=== PATIENT | female | born 1975 | race African-American/Black ===

== ENCOUNTER 2024-12-01 06:58 | Emergency (ER) | payer OTHER, SELFPAY ==
[2024-12-01] VITALS (10 sets, daily range): BP systolic 157–188; BP diastolic 83–103; PULSE 66–91; RESP 14–20; TEMP 36.6; O2SAT 90–100
--- NOTE | ~2024-12-01 | XR_ITS ---
Portable chest x-ray Comparison: None Clinical History: Cough Findings: Lungs are clear, without focal consolidation or pleural effusion. Cardiomediastinal silho uette is unremarkable. Bones and soft tissues are unremarkable. Impression: Normal chest. Reviewed, dictated and finalized at location . Impression: Normal chest.
--- NOTE | 2024-12-01 07:32 | ECG_ITS ---
Test Date: 2024-12-01 07:37:37 Measurements Intervals [place] Rate: 62 P: 42 [place]: 186 QRS: 43 QRSD: 82 T: 6 QT: 410 QTc: 418 Interpretive Statements SINUS RHYTHM BORDERLINE R WAVE PROGRESSION, ANTERIOR LEADS BORDERLINE ST-T WAVE ABNORMALITY- INFERIOR LEADS BASELINE ARTIFACT- I, II, III, AVR, AVL, AVF, V4-V5 BORDERLINE ECG No previous ECG available for comparison Electronically Signed On 12-01-2024 08:29:10 CDT by Adin Hightower D.O.
[2024-12-01] MEDS: hydrALAZINE HCL 20 MG/ML VIAL 10 MG IV PUSH (07:56)
[2024-12-01 08:05] LABS: Basophils Percent Auto 0.3 % (0.2-1.2); Eosinophils Absolute Auto 0.1 K/mm3 (0-0.3); Eosinophils Percent Auto 1.5 % (0-4.4); Hematocrit 37.1 % (37.0-47.0); Hemoglobin 11.6 g/dL (12.0-15.0); Immature Granulocyte Absolute 0.01 K/mm3 (0.00-0.031); Immature Granulocyte Percent A 0.3 % (0-0.5); Lymphocytes Absolute Auto 1.22 K/mm3 (0.9-3.2); Lymphocytes Percent Auto 35.5 % (18.3-44.2); Mean Corpuscular HGB Conc 31.3 g/dl (32-36); Mean Corpuscular Hemoglobin 26.7 pg (26-34); Mean Corpuscular Volume 85.3 fl (80-100); Mean Platelet Volume 12.8 fl (7.4-10.4); Monocytes Absolute Auto 0.3 K/mm3 (0.1-0.6); Monocytes Percent Auto 8.4 % (2.6-8.5); Neutrophils Absolute Auto 1.9 K/mm3 (1.3-6.7); Platelet Count Result 199 k/mm3 (150-375); Red Blood Count 4.35 M/mm3 (4.2-5.4); Red Cell Distribution Width 16.4 % (11.5-14.5); White Blood Count 3.4 K/mm3 (4.5-10.0)
[2024-12-01 08:07] LABS: Add Urine Microscopic? NO; Appearance Urine Clear (Clear); Bilirubin Urine Negative (Negative); Blood Urine Negative (Negative); Color Urine Yellow (Yellow); Glucose Urine UA Negative (Negative); Ketones Urine Negative (Negative); Leukocyte Esterase Ur Negative LEU/UL (Negative); Nitrate Urine Negative (Negative); Protein Urine Negative (Negative); Specific Grav Ur 1.005 (1.001-1.035); pH Urine 7.5 (5.0-9.0)
[2024-12-01 08:15] LABS: Alanine Aminotransferase 12 U/L (6-35); Albumin Level 4.2 g/dL (3.5-5.1); Alkaline Phosphatase 48 U/L (38-126); Anion Gap 7 mmol/L (4-12); Aspartate Amino Transferase 35 U/L (14-36); Bilirubin,Total 0.5 mg/dL (0.2-1.3); Blood Urea Nitrogen 6 mg/dL (7-17); Calcium 8.9 mg/dL (8.4-10.2); Carbon Dioxide 26 mmol/L (22-30); Chloride 106 mmol/L (98-107); Estimated CRCL calculation 67 ml/min; Estimated Glomerular Filt Rate > 60; Glucose 95 mg/dL (65-110); Potassium 3.6 mmol/L (3.4-5.0); Sodium 139 mmol/L (137-145); Total Protein 8.1 g/dL (6.3-8.2)
--- OUTSIDE RECORDS SUMMARY | 2024-12-01 08:36 | XMS_ITS | Data Portability ---
Author Organization [employer], Main Office Address [address] [place] [address] Assessment Encounter Date Assessment Date Assessment LastModified by Organization Details LastModified Time 11/28/2023 11/28/2023 This note is dictated and transcribed by [employer]. Environmental Permitting Specialist variances may occur. Despite proofreading, typographical errors may occur. Occasional wrong-word or 'dxvst-j-nxsh' substitutions may have occurred due to the inherent limitations of voice recording. Read the chart carefully and recognize, using context, where substitutions have occurred. Not available 11/28/2023 10:22:44 08/03/2024 08/03/2024 This note is dictated and transcribed by [employer]. Environmental Permitting Specialist variances may occur. Despite proofreading, typographical errors may occur. Occasional wrong-word or 'dissg-l-oije' substitutions may have occurred due to the inherent limitations of voice recording. Read the chart carefully and recognize, using context, where substitutions have occurred. Not available 08/03/2024 12:48:46 08/31/2024 08/31/2024 This note is dictated and transcribed by [employer]. Environmental Permitting Specialist variances may occur. Despite proofreading, typographical errors may occur. Occasional wrong-word or 'bvksl-n-eyzh' substitutions may have occurred due to the inherent limitations of voice recording. Read the chart carefully and recognize, using context, where substitutions have occurred. Not available 08/31/2024 14:57:13 Plan of Treatment Reminders Order Date Submit Date Provider Last Modified By Organization Details Last Modified Time Details Appointments None record ed. Lab None record ed. Referral None record ed. Procedures None record ed. Surgeries None record ed. Imaging XR, foot, 3 or more view 025 08/03/19 25 [email or web address] [facility] [place], [address], [place], [address], 5 12:51:34 Medication Orders None record ed. Patient TargetsNo targets recorded. Patient InstructionsNo instructions recorded. Reason for Referral None Reported. Results Created Date Observation Date Name Description Value Unit Range Abnormal Flag Note LastModifiedBy Organization Detail LastModifiedTime 08/03/19 25 XR, foot, 3 or more view No observ ation record ed. [email or web address] [facility] [place] [address], [place], [address], 08/03/2024 12:51:34 Result Notes None recorded. Problems Name Problem SNOMED Code Status Onset Date Resolution Date Notes Provider Name and Address Organization Details Recorded Time Pain of toe of left foot 920691019477413 Active 2023 Kenny Brar DPM [address], [address], [place], [address], [employer] 4 10:23:01 Curly toe 460067876 Active 2023 Kenny Brar DPM [address], [address], [place], [address], [employer] 4 10:23:06 [place] of toe 35885295 Active 2023 Kenny Brar DPM [address], [address], [place], [address], [employer] 4 10:23:13 Hammer toe 857481143 Active 2024 Kenny Brar DPM [address], [address], [place], [address], [employer] 5 12:48:55 Hammer toe 491965454 Active 2024 Kenny Brar DPM [address], [address], [place], [address], [employer] 12:48:59 Problem Notes None recorded. Procedures Surgical History Date Name Laterality Status Provider Name and Address Organization Details Recorded Time 08/31/2024 Callus Debridement , One completed Kenny Brar DPM [address], [address], [place], [address], [employer] 08/31/2024 11:47:22 08/03/2024 Callus Debridement , One completed Kenny Brar DPM [address], [address], [place], [address], [employer] 08/03/2024 12:53:13 11/28/2023 Callus Debridement , One completed Kenny Brar DPM [address], [address], [place], [address], [employer] 11/28/2023 10:21:29 Imaging Results None recorded. Procedure Notes None recorded. Medical Equipment None Reported. Allergies No known drug allergies Vitals Date Recorded Body height Body mass index (BMI) Body weight Heart rate Respiratory rate Oxygen saturation Oxygen saturation in Arterial blood by Pulse oximetry Systolic blood pressure Diastolic blood pressure Provider Name and Address Organization Details Last Updated DateTime 157.48 cm 20.1 kg/m2 13436.1 6 g 56 /min 14 /min 99 % 99 % 146 mm[Hg] 83 mm[Hg] Yina Springer [employer] 12:25:37 Date Recorded Body height Body mass index (BMI) Body weight Heart rate Respiratory rate Oxygen saturation Oxygen saturation in Arterial blood by Pulse oximetry Systolic blood pressure Diastolic blood pressure Provider Name and Address Organization Details Last Updated DateTime 157.48 cm 20.1 kg/m2 11085.1 6 g 101 /min 14 /min 99 % 99 % 163 mm[Hg] 115 mm[Hg] Yina Springer [employer] 11:21:58 Date Recorded Body height Body mass index (BMI) Body weight Provider Name and Address Organization Details Last Updated DateTime 11/28/2023 157.48 cm 20.1 kg/m2 16551.16 g Naty Riley [facility] [employer] 11/28/2023 10:35:17 Date Recorded Heart rate Respiratory rate Oxygen saturation Oxygen saturation in Arterial blood by Pulse oximetry Systolic blood pressure Diastolic blood pressure Provider Name and Address Organization Details Last Updated DateTime 4 88 /min 14 /min 98 % 98 % 168 mm[Hg] 111 mm[Hg] Yina Springer MD [employer] 4 10:10:01 Social History None recorded. Functional Status Question Answer Note LastModified by Organizat ion Details LastModified Time What is your level of alcohol consumption? Occasional [email or web address] Information not available 11/28/2023 Mental Status None recorded. Family History Relationship Description Onset Age of this Age Resolved Age Notes LastModified by Organization Details LastModified Time Father Diabetes mellitus [email or web address] Not available 2023 10:35:47 Father Hypertensive disorder [email or web address] Not available 2023 10:36:07 Mother Family history of malignant neoplasm [email or web address] Not available 2023 10:35:56 Mother Hypertensive disorder [email or web address] Not available 2023 10:36:07 Medical History No medical history recorded. Gynecological HistoryNo gynecological history recorded. Obstetrics History GPAL:G 0 P 0 0 0 0 Past Encounters Encounter ID Performer Location Encounter Start Date Encounter Closed Date Diagnosis/Indication Diagnosis SNOMED-CT Code Diagnosis ICD10 Code Diagnosis Note [id number] Kenny Brar DPM [facility] [place] [address] [place] [address] 11/28/2023 09:58:41 11/28/2023 11:34:33 Pain of toe of left foot 5074778327 36592 M79.675 5th -curly toe Curly toe 747622410 M20. 5X9 educated on treatment options both conservati ve and surgical [place] of toe 95024038 L84 debrided without incidentof floading options reviewedre commend wide shoe gear and silicone toe sleevefoll ow-up as needed [id number] Kenny Brar DPM [facility] [place] [address] [place] [address] 08/03/2024 12:13:43 08/04/2024 12:53:39 Pain of toe of left foot 1267026539 94788 M79.675 5th -curly toeoffload ing options reviewedre commend silicone toe sleevereco mmend wide shoe gearrecomm end square or rounded toe box shoes [place] of toe 12207429 L84 debrided without incidentof floading options reviewedre commend wide shoe gear and silicone toe sleevefoll ow-up as needed Hammer toe 337149975 M20 .42 left 5th toeadducto varus 5th toeas above conservati ve options [id number] Kenny Brar DPM [facility] [place] [address] [facility] [address] [place] [address] 08/31/2024 11:07:33 09/01/2024 09:33:31 Curly toe 280832517 M20.5X9 educated on treatment options both conservati ve and surgical Pain of to e of left foot 1491586635 64744 M79.675 5th -curly toeoffload ing options reviewedre commend silicone toe sleevereco mmend wide shoe gearrecomm end square or rounded toe box shoes [place] of toe 80261435 L84 debrided without incidentof floading options reviewedre commend wide shoe gear and silicone toe sleevefoll ow-up 2 months possible surgery if continues to fail conservati ve offloading Health Concerns Section Related Observation LastModified by Organization Detai ls LastModified Time None Recorded Concern Status LastModified by Organization Details LastModified Time None Recorded Advance Directives Directive None Recorded Payers Insurance Date Sequence Insurance Name Policy Number Policy [place] Covered Member ID [place] Member ID Guarantor Name 07/02/2024 1 [place] [id number] Maria T Lozano [id number] Maria T Lozano 10/23/2024 1 [facility] - DOS ON OR AFTER 2020 - DUAL ELIGIBLE (MEDICARE REPLACEMENT/ ADVANTAGE - HMO) Maribel Lozano [id number] Maira T Lozano Notes Date Note Type Note Provider Name and Address Organization Details Recorded Time 11/28/2023 text/html . Patient is a 48-year-old female who presents the office with complaints of pain to her left 5th toe. Patient states she produces a callus to the area. Patient states she likes narrow toe shoe gear. Patient states this has been ongoing. Patient states she develops a callus but denies any wounds or signs of infection. Patient states the pain is sharp in nature. Patient states if she is not wearing tight shoe gear the toe does not significantly hurt. 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 Patient denies any other complaints. Kenny Brar DPM [address], [address], [place], [address], [employer] 11/28/2023 11:11:23 08/03/2024 text/html . Patient is a 49-year-old female she presents the office with complaints of pain to her left 5th toe she states that she has developed a painful corn to the distal lateral toe area at the nail. 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 Patient states when she is walking she has pain to the area of the corn she denies any open wounds. Patient states she has tried some conservative offloading with silicone pads and wider shoe gear which has not significantly helped. Patient denies any other complaints. Kenny Brar DPM [address], [address], [place], [address], [employer] 08/03/2024 17:49:27 08/31/2024 text/html . Patient is a 49-year-old female who returns the office for follow-up on curly toe and corn to the lateral 5th toe she states that the offloading is helping but she continues have recurrence of the callus formation she states that the toe is significantly painful when the corn becomes prominent. Patient denies any open wounds or infection. Patient states when she is not walking the toe does not hurt. Patient denies any other complaints. Kenny Brar DPM [address], [place], [address], [employer] 08/31/2024 14:57:48 OBGyn Episode No OBEpisode recorded.
--- OUTSIDE RECORDS SUMMARY | 2024-12-01 08:36 | XMS_ITS | Data Portability ---
Author Organization [facility] Address [address] [place] [address] Care Team Providers Care Cash Surrender Calculator Name Role Phone LUDWIN JOVEL Cushion Maker Unavailable Assessment Encounter Date Assessment Date Assessment LastModified by Organization Details LastModified Time 03/02/2016 03/02/2016 40yo : 1. Health maintenance: - pap collected today - clinical breast exam wnl; encouraged breast self awareness; discussed recs for screening mammography starting at 40 - STD testing ordered 2. Contraception: - s/p BTL 3. RTC 1 year or sooner prn suman Not available 03/02/2016 11:15:44 03/03/2021 03/03/2021 Maria T is a 45 y.o. thin female who has exp. a few family deaths close together. Does feel as though life is stressful. Exp. a cycle at the end of Jan. and again the beginning of Feb. Discussed life stresses and early onset of menopause as possible reasons for change in cycles. No hx. of fibroid uterus, Has never had cycle changes like this before. Pt. to have annual exam and possible labs. No lab person today. Pt. to RTC in Mar. for assessment of cycle and annual visit. Not available 03/03/2021 10:51:22 Plan of Treatment Reminders Order Date Submit Date Provider Last Modified By Organization Details Last Modified Time Details Appointments None recorded. Lab vaginal pathogens panel, JULIEN+probe, vaginal fluid 2023 024 [facility], [address] [place] [address], [address], [place], [address], 4 06:15:26 HIV 1 + 2, meaningful use set 2023 024 [facility], [address] [place] [address], [address], [place], [address], 4 08:23:27 RPR (rapid plasma reagin), serum 2023 024 [facility], [address] [place] [address], [address], [place], [address], 4 08:23:26 HBsAg (hepatitis B surface Ag), EIA, serum 2023 024 [facility], [address] [place] [address], [address], [place], [address], 4 13:09:54 Hepatitis C IgG Ab, qual, serum 2023 024 [facility], [address] [place] [address], [address], [place], [address], 4 08:23:29 pap, IG + reflex HPV 2023 024 [facility], [address] [place] [address], [address], [place], [address], 4 06:20:53 unlisted lab - Pap Ig, CT-NG, TV, HPV 16/18 2015 016 [email or web address] 3 [facility] [address] [place], [address], 6 12:09:11 hepatitis panel (A+B+C), acute, serum 2015 016 [facility], [address] [place] [address], [address], [place], [address], 6 09:15:10 RPR (rapid plasma reagin), serum 2015 016 [facility], [address], [address], [place], [address], 6 09:15:12 HIV (1+2) Ab screen, serum 2015 016 [facility] (Lab), [address] [place], [address], 6 06:28:59 Referral genetic counselor referral - First degree relative with breast cancer. Wanting BRCA gene testing please. [address] Genetic Counselor, [address] [place] [address], [address], 4 09:45:12 Procedures None recorded. Surgeries None recorded. Imaging MAMMO, screening, digital, bilateral 2023 024 [facility], [address] [place], [address], 4 10:26:18 Medication Orders promethazin e 25 mg tablet 2015 016 [facility] #[id number], [address], [place], [place], [id number], 1 09:58:16 amoxicillin 875 mg tablet 2014 015 [id number], [address], [place], [place], [id number], 6 11:10:17 Flonase Allergy Relief 50 mcg/actuati on nasal spray,suspe nsion 2014 015 [id number], [address], [place], [place], [id number], 6 11:10:17 montelukast 10 mg tablet [address] [facility] #69848, [address] , [place], [place], [id number], 6 11:10:17 loratadine 10 mg tablet 2014 Pam [facility] #01548, [address] [facility], [place], [place], [id number], 6 11:10:17 Patient Targets Encounter Date Encounter Id Patient Goals Patient Target Last Modified By Organization Details Last Modified Time 03/03/2021 [id number] Up dated annual exam to include mammogram Not available 03/03/2021 10:51:55 Patient Instructions Encounter Date Encounter Id Patient Instructions Last Modified By Organization Details Last Modified Time 01/11/2015 [id number] lightheadedness or faintness: care instructions Not available 01/13/2015 17:41:11 note to return t o work/school Not available 01/13/2015 17:32:59 03/03/2021 [id number] Discussed stress and possible onset of menopause as reason for cycle changes Not available 03/03/2021 10:52:23 08/05/2023 [id number] Quitting Tobacco : Care Instructions eclardy Not available 08/05/2023 11:48:01 Reason for Referral Genetic Counselor Referral f or Family history of malignant neoplasm of breast in first degree relative First degree relative with breast cancer. Wanting BRCA gene testing please. Referring Physician: Deandra Garcia, Family Medicine, Encounter Date: 08/05/2023 Results Created Date Observation Date Name Description Value Unit Range Abnormal Flag Note LastModifiedBy Organization Detail LastModifiedTime 03/02/20 16 03/03/2016 HIV (1+2) Ab scree n, serum HIV 4TH generation Non Reacti ve non reacti ve Not Available [facility] (Lab) [address] [place], [address], 03/03/2016 06:28:59 03/02/20 16 03/03/2016 hepat itis panel (A+B+ C), acute , serum hep A Ab, IgM Negati ve negati ve Not Available [facility] (Lab) [address] [place], [address], 03/03/2016 09:15:10 03/02/20 16 03/03/2016 hepat itis panel (A+B+ C), acute , serum HBsAg screen Negati ve negati ve Not Available [facility] (Lab) [address] [place], [address], 03/03/2016 09:15:10 03/02/20 16 03/03/2016 hepat itis panel (A+B+ C), acute , serum hep B core Ab, IgM Negati ve negati ve Not Available [facility] (Lab) [address] [place], [address], 03/03/2016 09:15:10 03/02/20 16 03/03/2016 hepat itis panel (A+B+ C), acute , serum hep C virus Ab <0.1 s/co_ ratio 0.0-0. 9 Negat lewis: < 0.8 Indet ermin ate: 0.8 - 0.9 Posit lewis: > 0.9 . The CDC recom mends that a posit lewis HCV antib natividad resul t be follo wed up with a HCV Nucle ic Acid Ampli ficat ion test (5507 13). Not Available [facility] (Lab) [address] [facility], [place], [address], 03/03/2016 09:15:10 03/02/20 16 03/03/2016 RPR (rapi d plasm a reagi n), serum RPR Non Reacti ve non reacti ve Not Available [facility] (Lab) [address] [place], [address], 03/03/2016 09:15:12 03/02/20 16 03/06/2016 [facility] lab diagnosis: COMMEN T NEGAT LEWIS FOR INTRA EPITH ELIAL LESIO N AND MALIG BARNEY . Not Available [facility] ([facility] Lab) [address] [facility], [place], [address], 03/06/2016 17:10:43 03/02/20 16 03/06/2016 unlis geeta lab specimen adequacy: MIMI Obando SATIS FACTO RY FOR EVALU ATION . ENDOC ERVIC AL AND/O R SQUAM OUS METAP LASTI C CELLS (ENDO CERVI ALPHONSO COMPO NENT) ARE PRESE NT. Not Available [facility] ([facility]) [address] [facility], [place], [address], 03/06/2016 17:10:43 03/02/20 16 03/06/2016 unlis geeta lab clinician provided ICD10: MIMI Obando Z01.4 19 Not Available [facility] ([facility]) [address] [place], [address], 03/06/2016 17:10:43 03/02/20 16 03/06/2016 unlis geeta lab performed by: MARICRUZ HERMAN (ASCP ) Not Available [facility] ([facility]) [address] [place], [address], 03/06/2016 17:10:43 03/02/20 16 03/06/2016 un[facility] lab . . Not Available [facility] ([facility]) [address] [place], [address], 03/06/2016 17:10:43 03/02/20 16 03/06/2016 un[facility] lab note: MIMI Obando THE PAP SMEAR IS A SCREE VLADIMIR TEST DESIG HARVEY TO AID IN THE DETEC TION OF VIOLETTA LIGNA NT AND MALIG NANT CONDI TIONS OF THE UTERI NE CERVI X. IT IS NOT A DIAGN OSTIC PROCE DURE AND SHOUL D NOT BE USED THE SOLE MEANS OF DETEC TING CERVI ALPHONSO CANCE R. BOTH FALSE -POSI TIVE AND FALSE -NEGA TIVE REPOR TS DO OCCUR . Not Available [facility] ([facility]) [address] [place], [address], 03/06/2016 17:10:43 03/02/20 16 03/06/2016 unlis [facility]eta lab test methodology: COMMEN T THIS LIQUI D BASED THINP REP(R ) PAP TEST WAS ISREAL NAYAK WITH THE USE OF AN IMAGE GUIDE Radha Larson. Not Available [facility] ([facility]) [address] [place], [address], 03/06/2016 17:10:43 03/02/20 16 03/06/2016 [facility] lab HPV, high-risk NEGATI VE negati ve THIS HIGH- RISK HPV TEST DETEC TS THIRT EEN HIGH- RISK TYPES (16/1 8/31/ 33/35 /39/4 5/51/ 52/56 /58/5 ) WITHO UT DIFFE RENTI ATION . Not Available [facility] ([facility]) [address] [place], [address], 03/06/2016 17:10:43 03/02/20 16 03/06/2016 [facility] lab chlamydia, nuc. acid amp NEGATI VE negati ve Not Available [facility] ([facility]) [address] [place], [address], 03/06/2016 17:10:43 03/02/20 16 03/06/2016 [facility] lab gonococcus, nuc. acid amp NEGATI VE negati ve Not Available [facility] ([facility]) [address] [place], [address], 03/06/2016 17:10:43 03/02/20 16 03/06/2016 [facility] lab trich vag by JULIEN NEGATI VE negati ve Not Available [facility] ([facility]) [address] [place], [address], 03/06/2016 17:10:43 08/05/19 24 08/06/2023 RPR, RFX QN RPR/C ONFIR M TP RPR Non Reacti ve nonrea ctive Not Available [facility] ([facility]) [address] [facility], [place], [address], 08/06/2023 08:23:26 08/05/19 24 08/06/2023 HIV AB/P2 4 AG WITH REFLE X HIV Ab/P24 Ag screen Non Reacti ve nonrea ctive HIV Negat lewis HIV-1 /HIV- 2 antib odies and HIV-1 p24 antig en were NOT detec geeta. There is no labor atory evide nce of HIV infec tion. Not Available [facility] ([facility]) [address] [facility], [place], [address], 08/06/2023 08:23:27 08/05/19 24 08/06/2023 INTER PRETA TION: interpretati on: Commen t Not infec geeta with HCV unles s early or acute infec tion is suspe cted (whic h may be delay ed in an immun ocomp romis ed indiv idual ), or other evide nce exist s to indic ate HCV infec tion. Not Available [facility] ([facility]) [address] [facility], [place], [address], 08/06/2023 08:23:28 08/05/19 24 08/06/2023 HCV ANTIB NATIVIDAD RFX TO QUANT PCR HCV Ab Non Reacti ve nonrea ctive Not Available [facility] ([facility]) [address] [facility], [place], [address], 08/06/2023 08:23:29 08/05/19 24 08/06/2023 HBSAG SCREE N HBsAg screen Negati ve negati ve Not Available [facility] ([facility]) [address] [place], [address], 08/06/2023 13:09:54 08/05/19 24 08/06/2023 NUSWA B VAGIN ITIS PLUS (VG+) atopobium vaginae High - 2 score abnormal Not Available [facility] ([facility]) [address] [facility], [place], [address], 08/07/2023 06:15:26 08/05/19 24 08/06/2023 NUSWA B VAGIN ITIS PLUS (VG+) bvab 2 High - 2 score abnormal Not Available [facility] ([facility]) [address] [facility], [place], [address], 08/07/2023 06:15:26 08/05/19 24 08/06/2023 NUA B VAGIN ITIS PLUS (VG+) megasphaera 1 High - 2 score abnormal Calcu late total score by aric masters the 3 indiv idual bacte rial vagin osis (BV) marke r score s toget her. Total score is inter prete d as follo ws: Total score 0-1: Indic ates the absen ce of BV. Total score 2: Indet ermin ate for BV. Addit ional clini alphonso data shoul d be evalu ated to estab robert a diagn osis. Total score 3-6: Indic ates the prese nce of BV. This test was devel oped and its perfo rmanc e ama cteri stics deter mined by [facility]. It has not been clear ed or appro angel luis by the Food and Drug Admin istra tion. Not Available [facility] ([facility]) [address] [facility], [place], [address], 08/07/2023 06:15:26 08/05/19 24 08/06/2023 NUA B VAGIN ITIS PLUS (VG+) gerhard albicans, JULIEN Negati ve negati ve Not Available [facility] ([facility]) [address] [facility], [place], [address], 08/07/2023 06:15:26 08/05/19 24 08/06/2023 NUSWA B VAGIN ITIS PLUS (VG+) gerhard glabrata, JULIEN Negati ve negati ve Not Available [facility] ([facility]) [address] [facility], [place], [address], 08/07/2023 06:15:26 08/05/19 24 08/07/2023 NUSWA B VAGIN ITIS PLUS (VG+) trich vag by JULIEN Negati ve negati ve Not Available [facility] ([facility]) [address] [place], [address], 08/07/2023 06:15:26 08/05/19 24 08/07/2023 NUSWA B VAGIN ITIS PLUS (VG+) chlamydia trachomatis, JULIEN Negati ve negati ve Not Available [facility] ([facility]) [address] [facility], [place], [address], 08/07/2023 06:15:26 08/05/19 24 08/07/2023 NUA B VAGIN ITIS PLUS (VG+) neisseria gonorrhoeae, JULIEN Negati ve negati ve Not Available [facility] ([facility]) [address] [place], [address], 08/07/2023 06:15:26 08/05/19 24 08/05/2023 IGP,A PTIMA HPV,A GE GDLN age gdln acog testing 30-65 Not Available [facility] ([facility]) [address] [place], [address], 08/09/2023 06:20:53 08/05/19 24 08/06/2023 IGP, APTIM A HPV, RFX 16/18 ,45 HPV aptima Negati ve negati ve This nucle ic acid ampli ficat ion test detec ts fourt een high- risk HPV types (16,1 8,31, 33,35 ,39,4 5,51, 52,56 ,58,5 9,66, 68) witho ut diffe renti ation . Not Available [facility] ([facility]) [address] [place], [address], 08/09/2023 06:20:54 08/05/19 24 08/08/2023 IGP, APTIM A HPV, RFX 16/18 ,45 diagnosis: Mimi SAUCEDO FOR INTRA EPITH ELIAL LESIO N OR EMILIODENNY BARNEY . Not Available [facility] ([facility]) [address] [facility], [place], [address], 08/09/2023 06:20:54 08/05/19 24 08/08/2023 IGP, APTIM A HPV, RFX 16/18 ,45 specimen adequacy: Mimi obando Satis facto ry for evalu ation . No endoc ervic al compo nent is ident ified . Not Available [facility] ([facility]) [address] [place], [address], 08/09/2023 06:20:54 08/05/19 24 08/08/2023 IGP, APTIM A HPV, RFX 16/18 ,45 clinician provided ICD10: Mimi obando Z11.3 Z12.4 Not Available [facility] ([facility]) [address] [place], [address], 08/09/2023 06:20:54 08/05/19 24 08/08/2023 IGP, APTIM A HPV, RFX 16/18 ,45 performed by: Mimi Matt , Maricruz obando (ASCP ) Not Available [facility] ([facility]) [address] [place], [address], 08/09/2023 06:20:54 08/05/19 24 08/08/2023 IGP, APTIM A HPV, RFX 16/18 ,45 . . Not Available [facility] ([facility]) [address] [place], [address], 08/09/2023 06:20:54 08/05/19 24 08/08/2023 IGP, APTIM A HPV, RFX 16/18 ,45 note: Commen t The Pap smear is a scree vladimir test desig harvey to aid in the detec tion of violetta ligna nt and malig nant condi tions of the uteri ne cervi x. It is not a diagn ostic proce dure and shoul d not be used as the sole means of detec ting cervi alphonso cance r. Both false -posi tive and false -nega tive repor ts do occur . Not Available [facility] ([facility]) [address] [facility], [place], [address], 08/09/2023 06:20:54 08/05/19 24 08/08/2023 IGP, APTIM A HPV, RFX 16/18 ,45 test methodology: Mimi t This liqui d based ThinP rep(R ) pap test was scree harvey with the use of an image guide d shirlene m. Not Available [facility] ([facility]) [address] [facility], [place], [address], 08/09/2023 06:20:54 08/05/19 24 08/08/2023 IGP, APTIM A HPV, RFX 16/18 ,45 HPV genotype reflex Commen t Crite prabhakar not met, HPV Genot ype not perfo rmed. Not Available [facility] ([facility]) [address] [place], [address], 08/09/2023 06:20:54 Result Notes None recorded. Problems Name Problem SNOMED Code Status Onset Date Resolution Date Notes Provider Name and Address Organization Details Recorded Time Near syncope [id number] Active Ludwin Jovel MD Attn: Amanuel masters,[address], [place], [address], [facility] 6 11:10:16 Gastroenteriti s 27433515 Active Rogelio Gordon MD Attn: Amanuel g,[address] [facility], [place], [address], [facility] 6 21:11:08 Problem Notes None recorded. Procedures Surgical History Date Name Laterality Status Provider Name and Address Organization Details Recorded Time 6 Date of Last Pap Smear completed Ludwin Jovel MD Attn: Accounting,[address], [place], [address], [facility] 03/02/2016 11:10:29 Other completed Ludwin Jovel MD Attn: Accounting,[address], [place], [address], [facility] 03/02/2016 11:10:52 Tubal Ligation completed Ludwin Jovel MD Attn: Accounting,[address], [place], [address], [facility] 03/02/2016 11:11:13 Imaging Results None recorded. Procedure Notes None recorded. Medical Equipment None Reported. Allergies No known drug allergies Medications Name Sig Start Date Stop Date Status Note LastModified by Organization Details LastModified Time Tubersol 5 tub. unit/0.1 mL intradermal injection solution Take 0.1 mL by intraderm al route for 1 day. 2014 active Not Available Not Available Not Avai lable amoxicillin 875 mg tablet Take 1 tablet every 12 hours by oral route for 10 days. 2014 active Not Available Not Available Not Avai lable promethazin e 25 mg tablet Take 1 tablet every 4 hours by oral route as needed for nuasea. 03/03 completed Not Available Not Available Not Available montelukast 10 mg tablet Take 1 tablet every day by oral route as directed for 90 days. 2014 active Not Available Not Available Not Avai lable loratadine 10 mg tablet Take 1 tablet every day by oral route for 90 days. 2014 active Not Available Not Available Not Avai lable Flonase Allergy Relief 50 mcg/actuati on nasal spray,suspe nsion Take 2 sprays every day by nasal route for 90 days. 2014 active Not Available Not Available Not Avai lable Vitals Date Recorded Body height Body mass index (BMI) Body weight Heart rate Systolic blood pressure Diastolic blood pressure Provider Name and Address Organization Details Last Updated DateTime 4 157.48 cm 20.3 kg/m2 38725.1 5 g 91 /min 156 mm[Hg] 96 mm[Hg] Daria Myers MA [facility] 4 11:48:36 Date Recorded Respiratory rate Body weight Oxygen saturation Oxygen saturation in Arterial blood by Pulse oximetry Body height Body mass index (BMI) Heart rate Body temperature Systolic blood pressure Diastolic blood pressure Provider Name and Address Organization Details Last Updated DateTime 5 18 /min 36426.0 1411 g 99 % 99 % 157.48 cm 18.8 kg/m2 102 /min 99 [degF] 110 mm[Hg] 80 mm[Hg] Moises Moore MD Attn: Amanuel sonam,[address], [place], [address], [facility] 5 18:46:15 Date Recorded Respiratory rate Body weight Oxygen saturation Oxygen saturation in Arterial blood by Pulse oximetry Body height Body mass index (BMI) Heart rate Body temperature Systolic blood pressure Diastolic blood pressure Provider Name and Address Organization Details Last Updated DateTime 5 18 /min 60665.0 1411 g 98 % 98 % 157.48 cm 18.8 kg/m2 102 /min 97.9 [degF] 110 mm[Hg] 80 mm[Hg] Oleg Rivas MA [facility] 5 19:45:22 Date Recorded Body mass index (BMI) Body height Body weight Systolic blood pressure Diastolic blood pressure Provider Name and Address Organization Details Last Updated DateTime 03/02/2016 17.9 kg/m2 154.94 cm 36557.27 515 g 100 mm[Hg] 52 mm[Hg] Petra Aguilar [facility] 6 10:37:28 Date Recorded Body height Body mass index (BMI) Body weight Systolic blood pressure Diastolic blood pressure Provider Name and Address Organization Details Last Updated DateTime 03/03/2021 157.48 cm 18.7 kg/m2 35403.86 g 110 mm[Hg] 70 mm[Hg] Daniela King MA [facility] 1 09:47:30 Date Recorded Body weight Body temperature Respiratory rate Body height Heart rate Body mass index (BMI) Systolic blood pressure Diastolic blood pressure Provider Name and Address Organization Details Last Updated DateTime 6 94518.2 7515 g 98.8 [degF] 18 /min 154.94 cm 60 /min 17.9 kg/m2 102 mm[Hg] 60 mm[Hg] Bunny Gibbs [place] [facility] 6 20:49:53 Social History Question Answer Notes LastModified by Organizat ion Details LastModified Time Tobacco Smoking Status Current Every Day Smoker black and milds Ludwin Jovel MD Attn: Accounting,[address], [place], [address], [facility] 03/02/2016 11:14:21 Do You Have An Advance Directive? Yes Information not available 03/03/2021 Is Blood Transfusion Acceptable In An Emergency? Yes Information not available 03/03/2021 What Is Your Level Of Caffeine Consumption? Occasional Information not available 03/03/2021 In The 14 Days Before Symptom Onset, Have You Had Close Contact With A Laboratory-confir med COVID-19 While That Case Was Ill? No Information not available 03/03/2021 In The 14 Days Before Symptom Onset, Have You Had Close Contact With A Person Who Is Under Investigation For COVID-19 While That Person Was Ill? No Information not available 03/03/2021 Have You Been To An Area Known To Be High Risk For COVID-19? No Information not available 03/03/2021 What Type Of Diet Are You Following? REGULAR Information not available 03/03/2021 What Is The Highest Grade Or Level Of School You Have Completed Or The Highest Degree You Have Received? [id number] Information not available 03/03/2021 Have There Been Any Changes To Your Family Or Social Situation? Yes Family Deaths Information not available 03/03/2021 What Was The Date Of Your Most Recent Tobacco Screening? 08/05/2023 Information not available 08/05/2023 Do You Have Any Pets? No Information not available 03/03/2021 Do You Use Protection During Sex? No Information not available 03/03/2021 What Is Your Relationship Status? Information not available 03/03/2021 Do You Use Your Seat Belt Or Car Seat Routinely? Yes Information not available 03/03/2021 Are You Sexually Active? Yes Information not available 03/03/2021 Do You Have Smoke And Carbon Monoxide Detectors In Your Home? Yes Information not available 03/03/2021 Are You Passively Exposed To Smoke? No Information no t available 03/03/2021 How Much Tobacco Do You Smoke? No [email or web address] Information not available 01/11/2015 Do You Use Sunscreen Routinely? No Information not available 03/03/2021 How Many Years Have You Smoked Tobacco? 3 Information not available 08/05/2023 Sex: Female Functional Status Question Answer Note LastModified by Organizat ion Details LastModified Time Do you use any illicit or recreational drugs? No Information not available 03/03/2021 What is your level of alcohol consumption? None Information not available 03/03/2021 Are you currently employed? 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 Moderate Information not available 03/03/2021 Mental Status Question Answer Note LastModified by Organization D etails LastModified Time Do you feel stressed (tense, restless, nervous, or anxious, or unable to sleep at night)? [id number] Information not available 03/03/2021 Family History Nothing Reported. Medical History Condition Response Blood Clots Y Gynecological History Statement/Question Response Abnormal Pap N Flow Moderate STIs/STDs N HPV Vaccine N Duration of Flow (days) 4 Age at Menarche 18 Current Control Method Tubal Ligat ion Age at First Child 19 Frequency of Cycle (Q days) 28 Sexually Active? Y Menses Monthly Y Date of Last Pap Smear 03/02/2016 Sexual Problems? N LMP Approximate Desired Control Method Sterilizati on Obstetrics History GPAL:G 4 P 3 1 0 4 Type Value Full Term 3 Premature 1 Living 4 Total 4 Past Encounters Encounter ID Performer Location Encounter Start Date Encounter Closed Date Diagnosis/Indication Diagnosis SNOMED-CT Code Diagnosis ICD10 Code Diagnosis Note [id number] Rogelio Gordon MD [address] [address] 10/29/2014 17:12:52 11/02/2014 15:42:06 Adult health examination [id number] Moises Moore MD [address] [address] 01/11/2015 19:41:18 01/12/2015 09:27:00 Near syncope [id number] meds and follow up... has sinus pressure.. . [id number] Ludwin Jovel MD [facility] (ORTHOTICS ASSISTANT) [address] [place] [address] 03/02/2016 10:08:46 03/02/2016 14:00:07 Gynecologic examination [id number] Z01.419 Venereal d isease screening [id number] Z11.3 [id number] Rogelio Gordon MD [address] [address] 03/21/2016 18:52:34 03/29/2016 14:10:38 Gastroenteritis [id number] K52.9 [id number] Stephanie Clayton MD [facility] (ORTHOTICS ASSISTANT) [address] [place] [address] 03/03/2021 09:29:01 03/03/2021 15:42:26 Irregular periods [id number] N92.6 [id number] DEANDRA GARCIA DO [facility] (ORTHOTICS ASSISTANT) [address] [place] [address] 08/05/2023 11:37:10 08/06/2023 12:21:18 Smoker [id number] F17.200 Elevated blood-pressure reading without diagnosis of hypertension [id number] R03.0 No red flag s/s. Follow up in one month. If still elevated, start anti-hyper tensive. ER precaution s discussed. Family his tory of malignant neoplasm of breast in first degree relative [id number] Z80.3 Pt's mother has breast cancer. Unsure what kind or if she was tested for BRCA gene. Pt has no red flag s/s. Will refer to genetic counselor but in the meantime will get mammogram. Venereal d isease screening [id number] Z11.3 Pt desires STD testing. Asymptomat ic. Currently has one male partner. Labs ordered as below. Encouraged condom use with every sexual encounter. Screening for malignant neoplasm of cervix [id number] Z12.4 Last pap 2016 NILM -hrHPV. Periods are currently regular every 28-30 days without heavy bleeding or cramping. Pt denies any abnormal vaginal discharge, lesions, or pain. Screening for malignant neoplasm of colon [id number] Z12.11 Will discuss at follow up in one month. Health Concerns Section Related Observation LastModified by Organization Detai ls LastModified Time None Recorded Concern Status LastModified by Organization Details LastModified Time None Recorded Advance Directives Directive Y: Payers Insurance Date Sequence Insurance Name Policy Number Policy Kan Covered Member ID Kan Member ID Guarantor Name 09/01/2023 1 [facility] ON OR AFTER 12/15/20 (MEDICAID REPLACEMENT - HMO) Maria T Lozano [id number] Maria T Lozano 08/06/2023 2 [place] MEDICARE REPLACEMENT PRIMARY) Maria T Lozano [id number] Maria T Lozano 02/16/2016 SLIDING FEE SCHEDULE - DISCOUNT Maria T Lozano 08/05/2023 1 [place] Maria T Lozano [id number] Maria T Lozano 08/05/2023 2 [place] [facility] Maria T Lozano [id number] Marai T Lozano 08/05/2023 1 [place] MEDICARE REPLACEMENT PRIMARY) Maria T Lozano [id number] Maria T Lozano 08/05/2023 1 [place] Maria T Lozano [id number] Maria T Lozano 08/05/2023 1 [place] Maria T Lozano [id number] Maria T Lozano 08/05/2023 2 [place] [facility] OF PUBLIC AID Maria T Lozano [id number] Maria T Lozano Notes Date Note Type Note Provider Name and Address Organization Details Recorded Time 01/11/2015 text/html dizziness for 1 day... was in heat and got lightheaded... no symptoms now... Moises Moore MD Attn: [employer],[address] [place], [address], [facility] 01/11/2015 20:04:59 03/02/2016 text/html 40yo here for annual exam - hasn't had cervical cancer screening in several years. She is currently on her period - has a cycle monthly. She is sexually active and requests STD testing. She does check her breasts at home. She is s/p BTL for contraception. She is worried about gaining weight. Ludwin Jovel MD Attn: [facility],[address], [place], [address], [facility] 03/02/2016 11:15:55 03/21/2016 text/html SHE ATE CAKE AT A GET TOGETHER YESTERDAY AND HAS HAD N/V/D SINCE THEN. Rogelio Gordon MD Attn: [facility],[address], [place], [address], [facility] 03/22/2016 02:36:19 03/03/2021 text/html RTC with concerns about having 2 cycles close together. Had a cycle on the 11 of February and another one on Feb.16. Has had a blood clot in her leg. resulting in surgery. Feels like cycle wants to start again with exp. cramping. Carmen Moore [facility], [facility] 03/03/2021 10:52:54 08/05/2023 text/html Pt here for pap smear. Periods are currently regular every 28-30 days without heavy bleeding or cramping. Pt denies any abnormal vaginal discharge, lesions, or pain.BP elevated in office today. Pt denies GROSS, vision changes, chest pian, palpitations, SOB, or increased LE edema.Pt wanting STD screening. Denies vaginal discharge, pain, lesions, or dysuria. No known contacts with STDs. Currently has one male partner.Pt's mother has breast cancer. Pt denies any breast pain, lumps, skin changes, or nipple discharge. DEANDRA GARCIA DO Attn: [facility],[address] [place], [address], [facility] 08/05/2023 12:39:25 OBGyn Episode No OBEpisode recorded.
--- OUTSIDE RECORDS SUMMARY | 2024-12-01 08:36 | XMS_ITS | Clinical Summary ---
Author Organization [facility] Address [address] [place] [address] Care Team Providers Care Hot Dip Plater Name Role Phone No, Physician Primary Care Provider [phone] Allergies No known active allergies Social History Tobacco Use Types Packs/Day Years Used Date Smoking Tobacco: Never Assessed Personal Safety Answer Date Recorded Getting School Help Needed Not on file 08/13 Comments Unknown Sex and Gender Information Value Date Recorded Sex Assigned at Not on file Legal Sex Female 11:32 PM TECH WRITER Gender Identity Not on file Sexual Orientation Not on file Last Filed Vital Signs Vital Sign Reading Time Taken Comments Blood Pressure 119/72 08/06/2022 9:37 PM TECH WRITER Pulse 95 08/06/2022 9:37 PM TECH WRITER Temperature 37.3 C (99.2 F) 08/06/2022 9:37 PM TECH WRITER Respiratory Rate 16 08/06/2022 9:37 PM TECH WRITER Oxygen Saturation 100% 08/06/2022 9:37 PM TECH WRITER Inhaled Oxygen Concentration - - Weight 48.8 kg (107 lb 9.4 oz) 08/06/2022 5:41 P M TECH WRITER Height 157.5 cm (5' 2) 08/06/2022 5:41 PM TECH WRITER Body Mass Index 19.68 08/06/2022 5:41 PM TECH WRITER Plan of Treatment Health Maintenance Due Date Last Done Comments Breast Cancer Screening-Mammogram 1977 Cervical Cancer Screening 1977 Colon Cancer Screening-Colonoscopy 1977 Depression Screening 1977 DTaP/Tdap/Td Vaccine (1 - Tdap) 1988 Hepatitis B Screening 1995 Regular Well Visit/Exam 18-64 1995 Covid-19 Vaccine (2023-2 5 season) 2024 08/14/2021, 07/17/2021 Influenza Vaccine (Season Ended) 2025 Hepatitis C Screening Completed 02/09/2020 Pneumococcal vaccine <65 Aged Out No longer eligible based on patient's age to complete this topic Procedures Procedure Name Priority Date/Time Associated Diagnosis Comments HEPATITIS PANEL, ACUTE Routine 02/09/2020 11:18 PM CDT from Last 3 Months or Most Recently Relevant to Health Maintenance Results * Hepatitis panel, acute (02/09/2020 11:18 PM CDT) HepBsAg NONREACT NONREACTIVE [facility] Comment: Siemens CentaurXP using BHARTI (chemiluminescent immunoassay) technology. NONREACTIVE: IgM antibodies to Hepatitis B Surface antigen not detected. REACTIVE: IgM antibodies to Hepatitis B Surface antigen detected. Reactive results will be confirmed by neutralization testing. HBsAb qn 496.15 mIU/mL [facility] Comment: Siemens CentaurXP using BHARTI (chemiluminescent immunoassay) technology. 9.99 IU/L or less.....NONREACTIVE: IgM antibodies to Hepatitis B Surface antibody are not detected. 10.00 IU/L or greater..REACTIVE: IgM antibodies to Hepatitis B Surface antibody are detected. Hep B core IgM NONREACT NONREACTIVE [facility] Comment: Siemens CentaurXP using BHARTI (chemiluminescent immunoassay) technology. NONREACTIVE: IgM antibodies to Hepatitis B Core antigen not detected. EQUIVOCAL: IgM antibodies to Hepatitis B Core antigen may or may not be present. Obtain a new specimen and retest. REACTIVE: IgM antibodies to Hepatitis B Core antigen detected. Hep A IgM NONREACT NONREACTIVE [facility] Comment: Siemens CentaurXP using BHARTI (chemiluminescent immunoassay) technology. NONREACTIVE: IgM antibodies to Hepatitis A not detected. This does not exclude possibility of exposure to Hepatitis A or early acute infection. EQUIVOCAL:IgM antibodies to Hepatitis A may or may not be present. Suggest recollection and retest. REACTIVE: Antibodies to Hepatitis A detected. Hep C Ab NONREACT NONREACTIVE [facility] Comment: Siemens CentaurXP using BHARTI (chemiluminescent immunoassay) technology. NONREACTIVE: Antibodies to Hepatitis C not detected. This does not exclude early acute Hepatitis C infection, possibility of exposure to Hepatitis C, antibodies below detection limit, or to lack of antibody reactivity to the antigen used in this assay. EQUIVOCAL: Antibodies to Hepatitis C may or may not be present. Sample to be confirmed by real-time PCR method. REACTIVE: Antibodies to Hepatitis C detected.Sample to be confirmed by real-time PCR method. 02/09/2020 11:1 8 PM CDT 02/09/2020 11:25 PM CDT Narrative Resulting Agency Comment ER us Adry Estrada MD LAB MICROBIOLOGY - GENERA L ORDERABLES Final Result [facility] [address] [place] [address], [facility] [phone] from Last 3 Months or Most Recently Relevant to Health Maintenance Insurance Care Teams Hot Dip Plater Relationship Specialty Start Date End Date No, Physician PCP - General 01/16/20
--- OUTSIDE RECORDS SUMMARY | 2024-12-01 08:36 | XMS_ITS | Clinical Summary ---
Author Organization [facility] Address [address] [place] [address] Care Team Providers Care Wax Bleacher Name Role Phone Unavailable Primary Care Provider Unavailabl e Source Comments [facility],non-owned Affiliates and Associated Physician Practices is amultiple site organization consisting of ambulatory clinics and hospital sitesin [place], [place], [place] and [place]. This disclosure is being madepursuant to the Care Everywhere program and may not contain all information available regarding this patient. Last updated 18.[facility] [employer] Social History Tobacco Use Types Packs/Day Years Used Date Smoking Tobacco: Never Assessed Comments Unknown Sex and Gender Information Value Date Recorded Sex Assigned at Not on file Legal Sex Female 10:35 AM CDT Gender Identity Not on file Sexual Orientation Not on file Plan of Treatment Health Maintenance Due Date Last Done Comments COLOGUARD (AGES 45-75) - COL ON CA SCREENING 1977 COLON MONITORING 1977 COLONOSCOPY - COLON CA SCREENING 1977 CT COLONOGRAPHY - COLON CA SCREENING 1977 Colorectal Cancer Screening 1977 FIT - COLON CA SCREENING 1977 FLEX SIG - COLON CA SCREENING 1977 LIPID TESTING 1977 MAMMOGRAM 1977 HIV SCREENING 1992 HEPATITIS C SCREENING 05/01/1995 DTAP/TDAP/TD VACCINES (1 - Tdap) 1996 HEPATITIS B VACCINE (1 of 3 - 19+ 3-dose series) 1996 COVID-19 VACCINE (1 - 2023-2 5 season) 2024 DEPRESSION SCREENING 06/17/2024 INFLUENZA VACCINE (Season Ended) 2025 ZOSTER VACCINE (1 of 2) 2027 HIB VACCINE Aged Out No longer eligi ble based on patient's age to complete this topic HPV VACCINE Aged Out No longer eligi ble based on patient's age to complete this topic MENINGOCOCCAL (Group B) VACC INE SHARED DECISION-MAKING Aged Out No longer eligibl e based on patient's age to complete this topic MENINGOCOCCAL GROUPS A/C/Y/W VACCINE Aged Out No longer eligible b ased on patient's age to complete this topic PNEUMOCOCCAL VACCINE Aged Out No long er eligible based on patient's age to complete this topic
--- OUTSIDE RECORDS SUMMARY | 2024-12-01 08:36 | XMS_ITS | Referral Summary ---
Author Organization [facility] Address [address] [place] [address] Care Team Providers Care Men'S Golf Coach Name Role Phone No, Physician Primary Care Provider [phone] Allergies No known active allergies Social History Tobacco Use Types Packs/Day Years Used Date Smoking Tobacco: Never Assessed Personal Safety Answer Date Recorded Getting School Help Needed Not on file 08/13 Comments Unknown Sex and Gender Information Value Date Recorded Sex Assigned at Not on file Legal Sex Female 11:32 PM SCREED OPERATOR Gender Identity Not on file Sexual Orientation Not on file Last Filed Vital Signs Vital Sign Reading Time Taken Comments Blood Pressure 119/72 08/06/2022 9:37 PM SCREED OPERATOR Pulse 95 08/06/2022 9:37 PM SCREED OPERATOR Temperature 37.3 C (99.2 F) 08/06/2022 9:37 PM SCREED OPERATOR Respiratory Rate 16 08/06/2022 9:37 PM SCREED OPERATOR Oxygen Saturation 100% 08/06/2022 9:37 PM SCREED OPERATOR Inhaled Oxygen Concentration - - Weight 48.8 kg (107 lb 9.4 oz) 08/06/2022 5:41 P M SCREED OPERATOR Height 157.5 cm (5' 2) 08/06/2022 5:41 PM SCREED OPERATOR Body Mass Index 19.68 08/06/2022 5:41 PM SCREED OPERATOR Plan of Treatment Not on file Procedures Procedure Name Priority Date/Time Associated Diagnosis Comments HEPATITIS PANEL, ACUTE Routine 02/09/2020 11:18 PM CDT from Last 3 Months or Most Recently Relevant to Health Maintenance Results * Hepatitis panel, acute (02/09/2020 11:18 PM CDT) HepBsAg NONREACT NONREACTIVE [facility] Comment: Siemens CentaurXP using BHARTI (chemiluminescent immunoassay) technology. NONREACTIVE: IgM antibodies to Hepatitis B Surface antigen not detected. REACTIVE: IgM antibodies to Hepatitis B Surface antigen detected. Reactive results will be confirmed by neutralization testing. HBsAb qn 496.15 mIU/mL [facility] Comment: Siemens CentaurXP using BHARTI (chemiluminescent immunoassay) technology. 9.99 IU/L or less.....NONREACTIVE: IgM antibodies to Hepatitis B Surface antibody are not detected. 10.00 IU/L or greater..REACTIVE: IgM antibodies to Hepatitis B Surface antibody are detected. Hep B core IgM NONREACT NONREACTIVE [facility] Comment: Siemens CentaurXP using BHARTI (chemiluminescent immunoassay) technology. NONREACTIVE: IgM antibodies to Hepatitis B Core antigen not detected. EQUIVOCAL: IgM antibodies to Hepatitis B Core antigen may or may not be present. Obtain a new specimen and retest. REACTIVE: IgM antibodies to Hepatitis B Core antigen detected. Hep A IgM NONREACT NONREACTIVE [facility] Comment: Siemens CentaurXP using BHARTI (chemiluminescent immunoassay) technology. NONREACTIVE: IgM antibodies to Hepatitis A not detected. This does not exclude possibility of exposure to Hepatitis A or early acute infection. EQUIVOCAL:IgM antibodies to Hepatitis A may or may not be present. Suggest recollection and retest. REACTIVE: Antibodies to Hepatitis A detected. Hep C Ab NONREACT NONREACTIVE [facility] Comment: Siemens CentaurXP using BHARTI (chemiluminescent [...] PM CDT Narrative Resulting Agency Comment ER Adry Estrada MD LAB MICROBIOLOGY - GENERA L ORDERABLES Final Result [facility] [address] [place] [address], [facility] [phone] from Last 3 Months or Most Recently Relevant to Health Maintenance Insurance Care Teams Men'S Golf Coach Relationship Specialty Start Date End Date No, Physician PCP - General 01/16/20
--- OUTSIDE RECORDS SUMMARY | 2024-12-01 08:36 | XMS_ITS | Encounter Summary ---
Author Organization [facility] Address [address] [place] [address] Care Team Providers Care Dry Pan Operator Name Role Phone Unavailable Primary Care Provider Unavailabl e Encounter Details Date Type Department Care Team (Late st Contact Info) Description 04/05/2020 Prep for Procedure [facility] [place] [id number] Marleni Muro MD [address] [place] [address] Social History Tobacco Use Types Packs/Day Years Used Date Smoking Tobacco: Some Days Cigarettes Smokeless Tobacco: Never Alcohol Use Standard Drinks/Week Comments Not Currently 0 (1 standard drink = 0.6 oz pur e alcohol) Comments No Sex and Gender Information Value Date Recorded Sex Assigned at Not on file Legal Sex Female 8:29 PM CDT Gender Identity Not on file Sexual Orientation Not on file COVID-19 Exposure Response Date Recorded In the last month, have you been in contact with someone who was confirmed or suspected to have Coronavirus / COVID-19? No / Unsure 04/08/2020 8:03 AM CDT documented as of this encounter Plan of Treatment Not on file documented as of this encounter Results * PRE-SURGICAL/PRE-PROCEDURE CORONAVIRUS (COVID 19) (04/05/2020 2:11 PM CDT) CORONAVIRUS SARS COV 2 PCR (RESP) NOT DETECTED NOT DETECTED 04/06/2020 3:16 PM CDT [facility] Comment: A Not Detected (negative) test result for this test means that SARS- CoV-2 RNA was not present in the specimen above the limit of detection. A negative result does not rule out the possibility of COVID-19 and should not be used as the sole basis for treatment or patient management decisions. If COVID-19 is still suspected, based on exposure history together with other clinical findings, re-testing should be considered in consultation with public health authorities. Laboratory test results should always be considered in the context of clinical observations and epidemiological data in making a final diagnosis and patient management decisions. Please review the Fact Sheets and FDA authorized labeling available for health care providers and patients using the following websites: https://[email or web address]/home/Covid-19/HCP/NAAT/fact-sheet2 https://www.[employer].[email or web address]/home/Covid-19/Patients/NAAT/ fact-sheet2 This test has been authorized by the FDA under an Emergency Use Authorization (EUA) for use by authorized laboratories. Due to the current public health emergency, [facility] is receiving a high volume of samples from a wide variety of swabs and media for COVID-19 testing. In order to serve patients during this public health crisis, samples from appropriate clinical sources are being tested. Negative test results derived from specimens received in non-commercially manufactured viral collection and transport media, or in media and sample collection kits not yet authorized by FDA for COVID-19 testing should be cautiously evaluated and the patient potentially subjected to extra precautions such as additional clinical monitoring, including collection of an additional specimen. Methodology: Nucleic Acid Amplification Test (NAAT) includes RT-PCR or TMA Additional information about COVID-19 can be found at the [facility] website: [email or web address].Innov[employer].tv/Covid19. Test performed at [facility] [place] [id number] [place] [phone] Director: BRINDA GILLILAND DO,MPH FIRST TEST NO 04/05/2020 3:17 PM CDT [facility] EMPLOYED IN HEALTHCARE NO 04/05/2020 3:17 PM CDT [facility] SYMPTOMATIC DEFINED BY CDC NO 04/05/2020 3:17 PM CDT [facility] DATE OF SYMPTOM ONSET UNKNOWN 04/05/2020 3:25 PM CDT [facility] HOSPITALIZATION STATUS NO 04/05/2020 3:17 PM CDT [facility] PATIENT IN ICU NO 04/05/2020 3:17 PM CDT [facility] NO 04/05/2020 3:17 PM CDT [facility] NOT 04/05/2020 3:17 PM CDT [facility] PATIENT'S RACE BLACK OR 04/05/2020 3:17 PM CDT [facility] ETHNICITY NONHISPANIC 04/05/2020 3:17 PM CDT [facility] SOURCE (QST) NASOPHARYNGEAL SWAB 04/05/2020 3:17 PM CDT [facility] NASOPHARYNGEAL SWAB / Unknown 04/05/2020 2:11 PM CDT us Marleni Muro MD MICROBIOLOGY - GENERAL ORDERAB LES Final Result [facility] [address] [place] [address], [place] [phone] [facility] [address] [address], documented in this encounter Visit Diagnoses Diagnosis Dysphagia- Primary Dysphagia, unspecified documented in this encounter Additional Health Concerns Infection Onset Date Last Indicated Resolved Time COVID-19 Rule Out 04/05/2020 04/05/2020 04/06/2020 3:17 PM CDT documented as of this encounter
--- NOTE | 2024-12-01 08:38 | ED_ITS ---
HPI - General Adult General Chief complaint: Recheck/Abnormal Lab/Rx Stated complaint: HTN Time Seen by Provider: 12/01/24 07:26 History of Present Illness HPI narrative: Patient 49-year-old female presents emergency department chief complaint of high blood pressure. Patient reports that she has had blood pressure out issues for some time and reports that she is not currently on medications and was trying did not start medications patient states that she has noticed that she little bit of a headache and some blurry vision at times patient denies chest pain denies shortness of breath denies focal weakness. Related Data Allergies Allergy/AdvReac Type Severity Reaction Status Date / Time No Known Allergies Allergy Verified 12/01/24 07:12 Review of Systems 2 Review of Systems: A 10 system review of systems was completed on the patient and is negative except for what is stated in the HPI. Nursing and ancillary documentation was reviewed. Exam 2 Narrative: GENERAL: Well-appearing, well-nourished, and in no acute distress. HEAD: Normocephalic, atraumatic. EYES: PERRLA and EOMI. ENT: Nares clear, no rhinorrhea or epistaxis. Mucous membranes moist. NECK: Supple. CHEST: Clear to auscultation. No respiratory distress. HEART: Regular rate and rhythm. No murmur heard. Normal peripheral pulses. ABDOMEN: Soft, nontender, nondistended, normal active bowel sounds. EXTREMITIES: Normal range of motion. No edema. SKIN: Warm, dry, no rash. NEURO: No focal deficits. Alert and oriented x3. PSYCH: Normal mood and affect. Course Vital Signs Vital signs: Vital Signs Temperature 36.6 C 12/01/24 07:09 Pulse Rate 91 12/01/24 07:09 Respiratory Rate 15 12/01/24 07:09 Blood Pressure 188/100 H 12/01/24 07:09 Pulse Oximetry 100 12/01/24 07:09 Oxygen Delivery Room Air 12/01/24 07:09 Temperature 36.6 C 12/01/24 07:09 Pulse Rate 75 12/01/24 08:16 Respiratory Rate 20 12/01/24 08:16 Blood Pressure 166/92 H 12/01/24 08:16 Pulse Oximetry 100 12/01/24 08:16 Oxygen Delivery Room Air 12/01/24 07:09 Medical Decision Making MDM Narrative Medical decision making narrative: Differential diagnosis includes hypertensive crisis, central hypertension, EKG showed no acute ischemic changes CBC showed a white count 3.4 normal hemoglobin of 11.6 electrolytes showed no significant abnormality renal function showed a BUN of 6 and a creatinine of 0.71 liver enzymes were normal urinalysis showed no protein. Chest x-ray showed no acute abnormality The patient was started on hydrochlorothiazide and will be instructed to follow- up with her primary care provider Vital Signs Vital Signs: Vital Signs Temperature 36.6 C 12/01/24 07:09 Pulse Rate 91 12/01/24 07:09 Respiratory Rate 15 12/01/24 07:09 Blood Pressure 188/100 H 12/01/24 07:09 Pulse Oximetry 100 12/01/24 07:09 Oxygen Delivery Room Air 12/01/24 07:09 Temperature 36.6 C 12/01/24 07:09 Pulse Rate 75 12/01/24 08:16 Respiratory Rate 20 12/01/24 08:16 Blood Pressure 166/92 H 12/01/24 08:16 Pulse Oximetry 100 12/01/24 08:16 Oxygen Delivery Room Air 12/01/24 07:09 Lab Data 12/01/24 07:55 12/01/24 07:55 Labs: Lab Results 12/01/24 Range/Units 07:55 WBC 3.4 L (4.5-10.0) K/mm3 RBC 4.35 (4.2-5.4) M/mm3 Hgb 11.6 L (12.0-15.0) g/dL Hct 37.1 (37.0-47.0) % MCV 85.3 (80-100) fl MCH 26.7 (26-34) pg MCHC 31.3 L (32-36) g/dl RDW 16.4 H (11.5-14.5) % Plt Count 199 (150-375) k/mm3 MPV 12.8 H (7.4-10.4) fl Immature Gran % (Auto) 0.3 (0-0.5) % Neut % (Auto) 54.0 (45.5-73.1) % Lymph % (Auto) 35.5 (18.3-44.2) % [place] % (Auto) 8.4 (2.6-8.5) % Eos % (Auto) 1.5 (0-4.4) % Baso % (Auto) 0.3 (0.2-1.2) % Lymph # (Auto) 1.22 (0.9-3.2) K/mm3 [facility] # (Auto) 0.3 (0.1-0.6) K/mm3 Eos # (Auto) 0.1 (0-0.3) K/mm3 Baso # (Auto) 0.0 (0.0-0.1) K/mm3 Abs Immat Gran (auto) 0.01 (0.00-0.031) K/mm3 Absolute Neuts (auto) 1.9 (1.3-6.7) K/mm3 Absolute Nucleated RBC 0.000 (0.0-0.012) K/mm3 Nucleated RBC % 0.0 (0.0-0.2) % Sodium 139 (137-145) mmol/L Potassium 3.6 (3.4-5.0) mmol/L Chloride 106 (98-107) mmol/L Carbon Dioxide 26 (22-30) mmol/L Anion Gap 7 (4-12) mmol/L BUN 6 L (7-17) mg/dL Creatinine 0.71 (0.7-1.0) mg/dL Estim Creat Clear Calc 67 ml/min Estimated GFR > 60 (59 - ) Glucose 95 (65-110) mg/dL Calcium 8.9 (8.4-10.2) mg/dL Total Bilirubin 0.5 (0.2-1.3) mg/dL AST 35 (14-36) U/L ALT 12 (6-35) U/L Alkaline Phosphatase 48 (38-126) U/L Total Protein 8.1 (6.3-8.2) g/dL Albumin 4.2 (3.5-5.1) g/dL Urine Color Yellow (Yellow) Urine Appearance Clear (Clear) Urine pH 7.5 (5.0-9.0) Ur Specific [place] 1.005 (1.001-1.035) Urine Protein Negative (Negative) mg/dL Urine Glucose (UA) Negative (Negative) mg/dL Urine Ketones Negative (Negative) mg/dL Ur Blood (Man) Negative (Negative) Urine Nitrate Negative (Negative) Urine Bilirubin Negative (Negative) Urine Urobilinogen 1.0 (<2.0) mg/dL Leukocyte Esterase Rfl Negative (Negative) BRANDON/UL Discharge Plan Discharge Clinical Impression: Hypertension Patient Disposition: Home Condition: Stable Instructions: Antibiotic Form, Hypertension (ED) Additional Instructions: Please follow-up with primary care is recommended he keep a daily log of her blood pressures. If you develop chest pain shortness of breath, localizing weakness or wish to be re-evaluated please return to the emergency department. Patient Language: Y[place] Prescriptions: New lisinopril-hydrochlorothiazide 10-12.5 mg tablet 1 tablet PO DAILY Qty: 30 0RF Follow-up/Referrals: UNKNOWN,DOCTOR [Primary Care Provider] - Abdias Gallo MD [Physician] - Time of Disposition: 08:45
== END 2024-12-01 09:04 | disposition home or self-care (01) ==
PROVIDERS: Emergency Provider Emergency Medicine
DX: I10 Essential (primary) hypertension (principal); R94.31 Abnormal electrocardiogram [ECG] [EKG]
CPT/HCPCS: 36415; 71045; 80053; 81003; 85025; 93005; 96374; 99284; J0360